=== PATIENT | male | born 1980 | race Hispanic/Latino ===

== ENCOUNTER 2018-11-09 11:19 | Emergency (ER) | payer BC ==
[~2018-11-09] VITALS: Ht 167.6 cm; Wt 95.3 kg
[2018-11-09] MEDS ORDERED: TETANUS/DIPHTHERIA TOX ADULT 0.5 ML SYR IM ONE (11:45)
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
== END 2018-11-09 13:39 | disposition home or self-care (01) ==
LOC: FSED 11:19 → EDBD 11:19 → FSED 13:39
DX: S02.32XA Fracture of orbital floor, left side, initial encounter for closed fracture (principal); S02.80XA Fracture of other specified skull and facial bones, unspecified side, initial encounter for closed fracture; S02.401A Maxillary fracture, unspecified side, initial encounter for closed fracture; W51.XXXA Accidental striking against or bumped into by another person, initial encounter; Y93.64 Activity, baseball
CPT/HCPCS: 70450; 70486; 90471; 90714; 99283